=== PATIENT | female | born 1950 | race Caucasian/White ===

== ENCOUNTER 2018-01-20 13:41 | Emergency (ER) | payer MEDICARE, OTHER ==
[~2018-01-20] VITALS: Ht 160 cm; Wt 96.6 kg
[2018-01-20] MEDS ORDERED: PROPRANOLOL HC120 MG PO (14:13)
[2018-01-20] MEDS ORDERED: CYMBALTA60 MG PO (14:13)
[2018-01-20] MEDS ORDERED: BENTYL 10 MG CA10 M1 PO (14:13)
[2018-01-20] MEDS ORDERED: CIPRO500 MG PO (14:14)
[2018-01-20] MEDS ORDERED: FLAGYL500 MG PO (14:14)
[2018-01-20 14:55] LABS: ABSOLUTE BASOPHILS 0.1 thou/uL (0.0-0.2); ABSOLUTE EOSINOPHILS 0.1 thou/uL (0.0-0.7); ABSOLUTE MONOCYTES 0.9 thou/uL (0.0-1.2); ABSOLUTE NEUTROPHILS 9.2 thou/uL (1.6-8.1); BASOPHILS 0.8 %; EOSINOPHILS 0.9 %; HEMATOCRIT 38.7 % (37.0-47.0); HEMOGLOBIN 12.5 gm/dL (12.0-15.0); LYMPHOCYTES 16.5 %; MCH 27.6 pg (26.0-34.0); MCHC 32.2 g/dL (28.0-37.0); MCV 85.6 fL (80.0-100.0); MONOCYTES 7.6 %; MPV 8.6 fl. (7.2-11.1); NUCLEATED RBCS 0 /100WBC; PLATELET COUNT* 278 thou/uL (150-400); POLYS 74.2 %; RBC 4.52 mil/uL (4.20-5.00); RDW-CV 15.6 % (10.5-14.5); WBC 12.4 thou/uL (4.0-11.0)
[2018-01-20 15:02] LABS: CALCIUM 9.4 mg/dL (8.5-10.1); POTASSIUM 4.1 mmol/L (3.5-5.1)
[2018-01-20 15:12] LABS: ALBUMIN 3.2 g/dL (3.4-5.0); TOTAL BILIRUBIN 0.6 mg/dL (<0.1-1.0); TOTAL PROTEIN 7.7 g/dL (6.4-8.2)
[2018-01-20 15:31] LABS: URINE BLOOD NEGATIVE (Negative); URINE CLARITY CLEAR; URINE COLOR YELLOW; URINE GLUCOSE-RANDOM NEGATIVE (Negative); URINE KETONES NEGATIVE (Negative); URINE LEUKOCYTES-REFLEX TRACE (Negative); URINE NITRITE-REFLEX NEGATIVE (Negative); URINE PROTEIN NEGATIVE (Negative); URINE SPECIFIC GRAVITY >= 1.030 (1.005-1.030); URINE UROBILINOGEN 0.2 E.U./dl (0.2-1.0)
[2018-01-20 15:32] LABS: ICTOTEST (BILI CONFIRMATORY) ND (Negative); URINE BILIRUBIN 1+ (Negative)
[2018-01-20 16:02] LABS: CASTS None Seen /LPF (None Seen); CRYSTALS None Seen /LPF (None Seen); MUCUS 0-3 Light strn/LPF (None Seen); SQUAMOUS 4-10 Moderate /LPF (0-3); URINE RBC None Seen /HPF (0-2); URINE WBC-REFLEX 0-5 Rare /HPF (0-5)
[2018-01-20] MEDS ORDERED: HYDROCODONE-AP1 EAC6 PO (17:00)
[2018-01-20] MEDS ORDERED: ZOFRAN ODT4 MG PO (17:00)
[2018-01-20 17:18] VITALS: BP 138/68
--- NOTE | 2018-01-21 11:11 | EKG ---
[place] [address] ELECTROCARDIOGRAM REPORT Name: CHRISTEL AGUIRRE Room: [facility]#: [id number] Admission: 01/20/18 Attend Phys: Discharge: 01/20/18 Date of : 52 Report #: [id number] THIS REPORT FOR: //name// [facility] ED Test Date: 2018-01-20 Test Time: 14:42:33 Pat Name: CHRISTEL AGUIRRE Department: Room: Gender: F [employer]: : 1950 Requested By: Ines Jovel Order Number: [id number] MD: Jai Castillo Measurements Intervals [place] Rate: 63 P: 48 NV: 174 QRS: 34 QRSD: 114 T: 48 QT: 451 QTc: 462 Interpretive Statements Sinus rhythm Probable left atrial enlargement Incomplete right bundle branch block Baseline wander in lead(s) I,aVR,aVL,V1,V2,V5,V6 No previous ECG available for comparison Electronically Signed On 01-21-2018 11:11:29 CDT by Jai Castillo [email or web address] <ELECTRONICALLY SIGNED> By: Jai Castillo MD, [facility] 01/21/18 1111 [id number] Jai Castillo MD, [facility] /EPI
== END 2018-01-20 17:21 | disposition home or self-care (01) ==
LOC: M.ERS 13:41
PROVIDERS: Nurse Practitioner Family
DX: K57.92 Diverticulitis of intestine, part unspecified, without perforation or abscess without bleeding (principal); N20.0 Calculus of kidney; Z90.710 Acquired absence of both cervix and uterus; Z88.2 Allergy status to sulfonamides

== ENCOUNTER 2019-12-27 09:33 | Emergency (ER) | payer MEDICARE, OTHER ==
[~2019-12-27] VITALS: Ht 160 cm; Wt 92.1 kg
[~2019-12-27 09:33] MED LIST: BENTYL 10 MG CA10 M1 PO; CIPRO500 MG PO; CYMBALTA60 MG PO; FLAGYL500 MG PO; HYDROCODONE-AP1 EAC6 PO; PROPRANOLOL HC120 MG PO; ZOFRAN ODT4 MG PO
[2019-12-27] MEDS ORDERED: BACLOFEN 10MG T10 MG PO (10:00)
[2019-12-27] MEDS ORDERED: MELOXICAM15 MG PO (10:00)
[2019-12-27] MEDS ORDERED: FEXOFENADINE-P1 EACH PO (10:01)
[2019-12-27] MEDS ORDERED: TRAMADOL 50 MG50 MG PO (10:01)
[2019-12-27] MEDS ORDERED: NORCO 5-325 TA1 EAC2 PO (11:10)
[2019-12-27 11:28] VITALS: BP 153/71
== END 2019-12-27 11:30 | disposition home or self-care (01) ==
LOC: M.ERS 09:33
DX: S02.2XXA Fracture of nasal bones, initial encounter for closed fracture (principal); S80.01XA Contusion of right knee, initial encounter; Z88.2 Allergy status to sulfonamides; Z90.710 Acquired absence of both cervix and uterus; W01.0XXA Fall on same level from slipping, tripping and stumbling without subsequent striking against object, initial encounter; Y93.89 Activity, other specified; Y92.89 Other specified places as the place of occurrence of the external cause; Y99.8 Other external cause status